=== PATIENT | male | born 1985 | race Caucasian/White ===

== ENCOUNTER → 2018-06-07 11:33 | Outpatient (CLI) | payer BC, SELFPAY ==
[2018-06-08 13:41] LABS: Chlamydia Result Negative; GC Result Negative; Specimen Description URINE
== END ==
PROVIDERS: PCP Family Medicine; Visit Provider Family Medicine
DX: Z20.2 Contact with and (suspected) exposure to infections with a predominantly sexual mode of transmission (principal); Z11.3 Encounter for screening for infections with a predominantly sexual mode of transmission
CPT/HCPCS: 87491; 87591

== ENCOUNTER 2020-03-14 17:16 | Emergency (ER) | payer OTHER, SELFPAY ==
[2020-03-14 17:29] VITALS: BP 158/87; PULSE 83; RESP 16; TEMP 36.9; O2SAT 94
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
[2020-03-14] MEDS: Ondansetron O.D.T. 4 MG TABEF PO (17:45)
[2020-03-14] MEDS: oxyCODONE 5 mg/Acetaminophen 325 mg TAB 1 TAB PO (17:45)
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
[2020-03-14] MEDS: Cyclobenzaprine 10 MG TAB PO (18:46)
== END 2020-03-14 18:55 | disposition home or self-care (01) ==
PROVIDERS: Emergency Provider Registered Nurse Emergency; PCP Nurse Practitioner
DX: S40.212A Abrasion of left shoulder, initial encounter (principal); V86.56XA Driver of dirt bike or motor/cross bike injured in nontraffic accident, initial encounter; Z87.81 Personal history of (healed) traumatic fracture
CPT/HCPCS: 99283; 73030

== ENCOUNTER 2020-04-03 03:07 | Outpatient (CLI) | payer OTHER, SELFPAY ==
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
== END 2020-04-03 03:27 ==
PROVIDERS: PCP Nurse Practitioner; Visit Provider Nurse Practitioner
DX: S00.93XA Contusion of unspecified part of head, initial encounter (principal)
CPT/HCPCS: 70450

== ENCOUNTER 2020-09-16 15:18 | Outpatient (REF) | payer SELFPAY ==
[2020-09-19 09:16] LABS: COVID-19 RT-PCR UVMMC Result Negative (Negative)
== END 2020-09-16 15:38 ==
LOC: LBN 15:18
PROVIDERS: PCP Nurse Practitioner; Visit Provider Family Medicine
DX: Z11.59 Encounter for screening for other viral diseases (principal); Z78.9 Other specified health status
CPT/HCPCS: U0003

== ENCOUNTER 2021-04-07 15:50 | Outpatient (REF) | payer SELFPAY ==
[2021-04-08 15:12] LABS: Chlamydia Result Negative (Negative); GC Result Negative (Negative)
== END 2021-04-07 15:51 | disposition home or self-care (01) ==
LOC: LBN 15:50
PROVIDERS: PCP Nurse Practitioner; Visit Provider Nurse Practitioner
DX: Z11.3 Encounter for screening for infections with a predominantly sexual mode of transmission (principal)
CPT/HCPCS: 87491; 87591

== ENCOUNTER 2021-08-02 17:27 | Outpatient (CLI) | payer SELFPAY ==
--- NOTE | 2021-08-02 17:15 | RT.EKG_ITS ---
APPROVED REPORT Exam: Resting ECG Reason for Exam: Chest discomfort Patient Location: O HR:67 bpm ECG Measurements Heart Rate 67 AXIS OH 168 P 55 QRSd 111 QRS 65 QT 387 T 55 QTc 410 Conclusion Sinus rhythm...normal P axis, V-rate 60- 99 ST elev, probable normal early repol pattern...ST elevation, age<55 Normal Electrocardiogram
--- NOTE | 2021-08-02 18:30 | RT.EKG_ITS ---
APPROVED REPORT Exam: Resting ECG Reason for Exam: Chest discomfort Patient Location: O HR:63 bpm ECG Measurements Heart Rate 63 AXIS TN 176 P 66 QRSd 110 QRS 68 QT 402 T 49 QTc 412 Conclusion Sinus rhythm...normal P axis, V-rate 60- 99 ST elev, probable normal early repol pattern...ST elevation, age<55 Normal Electrocardiogram
== END 2021-08-02 17:28 | disposition home or self-care (01) ==
PROVIDERS: PCP Nurse Practitioner; Visit Provider Nurse Practitioner Family
DX: R07.89 Other chest pain (principal)
CPT/HCPCS: 93010

== ENCOUNTER 2021-08-03 11:31 | Outpatient (CLI) | payer SELFPAY ==
[2021-08-03 16:14] LABS: Anion Gap 7.6 mmol/L (3-11); BUN 12 mg/dL (7-18); CO2 29.4 mmol/L (21.0-32.0); Calcium 9.4 mg/dL (8.5-10.1); Chloride 105 mmol/L (98-107); Glucose 77 mg/dL (74-106); Sodium 142 mmol/L (136-145); TSH (W/Ref FT4) 1.07 uIU/mL (0.36-3.74)
[2021-08-04 10:41] LABS: Hep B Core Antibody Negative (Negative)
[2021-08-04 11:31] LABS: Syphilis Serology (RPR) Negative (Negative)
[2021-08-04 11:41] LABS: HIV-1/2 Ag & Ab Screen Negative (Negative)
== END 2021-08-03 11:32 | disposition home or self-care (01) ==
PROVIDERS: Nurse Practitioner Family; PCP Nurse Practitioner; Visit Provider Nurse Practitioner
DX: R00.2 Palpitations (principal); Z11.3 Encounter for screening for infections with a predominantly sexual mode of transmission; Z11.4 Encounter for screening for human immunodeficiency virus [HIV]; Z11.59 Encounter for screening for other viral diseases
CPT/HCPCS: 36415; 80048; 86704; 87389; 83735; 84443; 86592

== ENCOUNTER 2021-11-09 17:26 | Outpatient (REF) | payer SELFPAY ==
[2021-11-11 13:55] LABS: Chlamydia Result Negative (Negative); GC Result Negative (Negative)
== END 2021-11-09 17:27 | disposition home or self-care (01) ==
LOC: LBN 17:26
PROVIDERS: Family Medicine; PCP Nurse Practitioner; Visit Provider Nurse Practitioner
DX: R30.0 Dysuria (principal); Z11.3 Encounter for screening for infections with a predominantly sexual mode of transmission
CPT/HCPCS: 87491; 87591

== ENCOUNTER 2022-07-25 20:45 | Outpatient (REF) | payer OTHER, SELFPAY ==
[2022-07-27 16:59] LABS: Chlamydia Result Negative (Negative); GC Result Negative (Negative)
== END 2022-07-25 20:46 | disposition home or self-care (01) ==
LOC: LBN 20:45
PROVIDERS: PCP Nurse Practitioner; Visit Provider Physician Assistant
DX: Z11.3 Encounter for screening for infections with a predominantly sexual mode of transmission (principal)
CPT/HCPCS: 87491; 87591

== ENCOUNTER 2023-01-05 17:55 | Outpatient (REF) | payer OTHER, SELFPAY ==
[2023-01-07 13:53] LABS: Chlamydia Result Negative (Negative); GC Result Negative (Negative)
== END 2023-01-05 17:56 | disposition home or self-care (01) ==
LOC: LBN 17:55
PROVIDERS: PCP Nurse Practitioner Family; Visit Provider Nurse Practitioner Family
DX: Z11.3 Encounter for screening for infections with a predominantly sexual mode of transmission (principal)
CPT/HCPCS: 87491; 87591

== ENCOUNTER 2023-02-06 19:28 | Outpatient (REF) | payer OTHER, SELFPAY ==
[2023-02-06 21:21] LABS: Bilirubin Negative (Negative); Blood Negative (Negative); Clarity Clear (Clear); Glucose Negative (Negative); Ketones Negative (Negative); Leukocyte Esterase Negative (Negative); Nitrite Negative (Negative); Specific Gravity 1.025 (1.005-1.025); Urobilinogen 0.2 mg/dL (Up to 0.2)
[2023-02-08 13:20] LABS: Chlamydia Result Negative (Negative); GC Result Negative (Negative)
[2023-02-09 14:00] LABS: Source Urine; T.vaginalis, Misc, RNA Negative (Negative)
== END 2023-02-06 19:29 | disposition home or self-care (01) ==
LOC: LBN 19:28
PROVIDERS: PCP Nurse Practitioner Family; Visit Provider Physician Assistant
DX: R30.0 Dysuria (principal); Z20.2 Contact with and (suspected) exposure to infections with a predominantly sexual mode of transmission; R35.0 Frequency of micturition
CPT/HCPCS: 87491; 87591; 87661; 81003

== ENCOUNTER 2023-03-06 18:38 | Outpatient (REF) | payer OTHER, SELFPAY | END 2023-03-06 18:39 | disposition home or self-care (01) | LOC: LBN 18:38 | PROVIDERS: PCP Nurse Practitioner Family; Visit Provider Physician Assistant | DX: J02.9 Acute pharyngitis, unspecified (principal) | CPT/HCPCS: 87070 ==

== ENCOUNTER 2023-08-09 03:44 | Outpatient (CLI) | payer OTHER, SELFPAY ==
[2023-08-10 09:31] LABS: Hepatitis B Surface Ab Positive (See Note)
[2023-08-10 09:43] LABS: Hepatitis B Surface Ag Negative (Negative)
[2023-08-10 10:02] LABS: Syphilis Serology (RPR) Negative (Negative)
[2023-08-10 10:19] LABS: HIV-1/2 Ag & Ab Screen Negative (Negative)
[2023-08-10 10:50] LABS: Hepatitis C Ab w Rflx HCV PCR Negative (Negative)
[2023-08-10 13:14] LABS: Chlamydia Result Negative (Negative); GC Result Negative (Negative)
== END 2023-08-09 03:45 | disposition home or self-care (01) ==
LOC: LOS 03:44
PROVIDERS: PCP Nurse Practitioner Family; Visit Provider Nurse Practitioner Family
DX: Z11.3 Encounter for screening for infections with a predominantly sexual mode of transmission (principal); Z11.59 Encounter for screening for other viral diseases; Z11.4 Encounter for screening for human immunodeficiency virus [HIV]
CPT/HCPCS: 36415; 86706; 86803; 87340; 87389; 87491; 87591; 86592

== ENCOUNTER 2023-09-21 15:13 | Outpatient (CLI) | payer OTHER, SELFPAY ==
[2023-09-22 10:00] LABS: HSV Type 1 Ab, IgG Positive (Negative); HSV Type 2 Ab, IgG Negative (Negative)
[2023-09-22 14:13] LABS: Chlamydia Result Negative (Negative); GC Result Negative (Negative)
== END 2023-09-21 15:14 | disposition home or self-care (01) ==
LOC: LBO 15:13
PROVIDERS: PCP Nurse Practitioner Family; Visit Provider Nurse Practitioner Family
DX: R30.0 Dysuria (principal); Z11.3 Encounter for screening for infections with a predominantly sexual mode of transmission
CPT/HCPCS: 36415; 87491; 87591; 86695; 86696

== ENCOUNTER 2023-09-21 21:27 | Outpatient (REF) | payer OTHER, SELFPAY ==
[2023-09-23 14:24] LABS: Chlamydia Result Negative (Negative); GC Result Negative (Negative)
== END 2023-09-21 21:28 | disposition home or self-care (01) ==
LOC: LBN 21:27
PROVIDERS: PCP Nurse Practitioner Family; Visit Provider Nurse Practitioner Family
DX: R30.0 Dysuria (principal)
CPT/HCPCS: 87491; 87591

== ENCOUNTER 2023-09-26 16:33 | Outpatient (REF) | payer OTHER, SELFPAY ==
[2023-09-27 16:57] LABS: HSV 1 DNA Result Negative (Negative); HSV 2 DNA Result Negative (Negative)
== END 2023-09-26 16:34 | disposition home or self-care (01) ==
LOC: LBN 16:33
PROVIDERS: PCP Nurse Practitioner Family; Visit Provider Nurse Practitioner Family
DX: R30.0 Dysuria (principal); Z11.59 Encounter for screening for other viral diseases
CPT/HCPCS: 87529

== ENCOUNTER 2024-04-17 13:07 | Emergency (ER) | payer OTHER, SELFPAY ==
[2024-04-17 13:22] VITALS: BP 145/80; PULSE 91; RESP 16; TEMP 36.6; O2SAT 100
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
[2024-04-17 15:30] LABS: Bilirubin Negative (Negative); Blood Negative (Negative); Clarity Clear (Clear); Glucose Negative (Negative); Ketones Negative (Negative); Leukocyte Esterase Negative (Negative); Nitrite Negative (Negative); Specific Gravity 1.025 (1.005-1.025); Urobilinogen 0.2 mg/dL (Up to 0.2)
[2024-04-17 15:42] VITALS: BP 145/80; PULSE 91; RESP 15; RESP 16; TEMP 36.6; O2SAT 100
[2024-04-17 16:10] VITALS: BP 145/80; PULSE 91; RESP 15; TEMP 36.6; O2SAT 100
[2024-04-22 13:18] LABS: Lyme Ab w Rflx to Lyme Confirm Negative (Negative)
[2024-04-22 19:20] LABS: Anaplasma phagocytophilum Negative (Negative); B. miyamotoi PCR Negative (Negative); Babesia divergens/MO-1 Negative (Negative); Babesia duncani Negative (Negative); Babesia microti Negative (Negative); Ehrlichia chaffeensis Negative (Negative); Ehrlichia ewingii/canis Negative (Negative); Ehrlichia muris eauclairensis Negative (Negative)
== END 2024-04-17 16:10 | disposition home or self-care (01) ==
PROVIDERS: Emergency Provider Physician Assistant; PCP Nurse Practitioner Family
DX: U07.1 COVID-19 (principal); N36.8 Other specified disorders of urethra
CPT/HCPCS: 36415; 87426; 87798; 99283; 81003; 86618

== ENCOUNTER 2025-02-25 22:24 | Outpatient (REF) | payer OTHER, SELFPAY ==
[2025-02-25 23:06] LABS: Bilirubin Negative (Negative); Blood Negative (Negative); Clarity Clear (Clear); Glucose Negative (Negative); Ketones Negative (Negative); Leukocyte Esterase Trace (Negative); Nitrite Negative (Negative); Urobilinogen 0.2 mg/dL (Up to 0.2); pH 6.5 (5-8)
[2025-02-25 23:22] LABS: Bacteria Rare HPF (Negative); C & S Indicated? No; Casts Negative LPF (Negative); Crystals Few Amorphous HPF (Negative); Epithelial Cells Negative HPF (Negative); Mucus Negative (Negative); RBC Negative HPF (0-2); WBC 0-2 HPF (0-5)
== END 2025-02-25 22:25 | disposition home or self-care (01) ==
LOC: LBN 22:24
PROVIDERS: PCP Nurse Practitioner Family; Visit Provider Nurse Practitioner Family
DX: R30.0 Dysuria (principal); R10.2 Pelvic and perineal pain
CPT/HCPCS: 81003; 81015

== ENCOUNTER 2025-07-29 14:52 | Outpatient (CLI) | payer OTHER, SELFPAY ==
--- NOTE | 2025-07-29 14:57 | DI.RAD_ITS ---
Exam(s) XR KNEE RT 4V AP,LAT,QUANG,PAT EXAM: XR KNEE RT 4V AP,LAT,QUANG,PAT CLINICAL HISTORY: right knee pain. TECHNIQUE: 2D digital imaging was performed of the right knee. Four views obtained. Merchant, AP, lateral and PA tunnel views were obtained. COMPARISON: No exams were available for comparison FINDINGS: BONES: No acute fracture is present. No bony destructive lesion is seen. JOINTS: The knee is normally aligned. No joint effusion is seen. SOFT TISSUE: Normal. IMPRESSION: Unremarkable radiographs of the right knee. DATA REPOSITORY: RADIATION DOSE DELIVERED:
== END 2025-07-29 14:53 | disposition home or self-care (01) ==
LOC: DIORS 14:52
PROVIDERS: PCP Nurse Practitioner Family; Visit Provider Physician Assistant
DX: M25.561 Pain in right knee (principal)
CPT/HCPCS: 73564